=== PATIENT | male | born 1955 | race Two or more races ===

== ENCOUNTER 2022-07-11 12:35 | Emergency (ER) | payer MEDICARE, OTHER ==
[~2022-07-11] VITALS: Ht 185.4 cm; Wt 90.0 kg
[2022-07-11 14:48] VITALS: BP 131/80
== END 2022-07-11 15:43 | disposition left against medical advice (07) ==
LOC: EMS 12:57
DX: Z53.21 Procedure and treatment not carried out due to patient leaving prior to being seen by health care provider (principal)